=== PATIENT | female | born 1985 | race Caucasian/White ===

== ENCOUNTER 2016-12-15 10:34 | Day surgery (SDC) | payer OTHER, SELFPAY ==
[~2016-12-15 10:34] MED LIST: AMITRIPTYLINE H50 M1 PO; HYDROCHLOROTHIA25 M1 PO; IBUPROFEN800 M1 PO; IMITREX PO; LISINOPRIL10 M1 PO; MAXALT10 M1 PO; NORCO 5-325 TA1 EACH PO; POTASSIUM99 M4 PO; PRINIVIL20 M1 PO; TYLENOL325 M2 PO; ZANAFLEX4 M2 PO; ZANAFLEX4 M3 PO
[2016-12-15] MEDS ORDERED: PERCOCET 5-3251 EACH PO (20:22)
== END 2016-12-16 11:10 ==
LOC: SHSB 10:34 → ORW 13:45 → PACU 15:06 → OBGF 16:30
PROC: 0UT94ZZ Resection of Uterus, Percutaneous Endoscopic Approach (ICD-10-PCS; principal; 2016-12-15)
PROC: 0UTC4ZZ Resection of Cervix, Percutaneous Endoscopic Approach (ICD-10-PCS; 2016-12-15)
PROC: 0UT74ZZ Resection of Bilateral Fallopian Tubes, Percutaneous Endoscopic Approach (ICD-10-PCS; 2016-12-15)
PROC: 8E0W4CZ Robotic Assisted Procedure of Trunk Region, Percutaneous Endoscopic Approach (ICD-10-PCS; 2016-12-15)
DX: N73.6 Female pelvic peritoneal adhesions (postinfective) (principal); G89.29 Other chronic pain; I10 Essential (primary) hypertension; K21.9 Gastro-esophageal reflux disease without esophagitis; Z79.899 Other long term (current) drug therapy; Z88.5 Allergy status to narcotic agent; Z90.49 Acquired absence of other specified parts of digestive tract; Z90.89 Acquired absence of other organs; Z98.890 Other specified postprocedural states
CPT/HCPCS: J0690; J1170; J2250; J2405; J3010; J7030; J7121